=== PATIENT | female | born 1945 | race Caucasian/White ===

== ENCOUNTER 2020-01-18 17:06 | Inpatient (IN) | payer OTHER ==
[~2020-01-18] VITALS: Ht 165.1 cm; Wt 65.4 kg
[2020-01-18 19:00] LABS: BASO # 0.2 (0.0-0.2); BASO % 1.4 % (0.0-2.0); EOS # 4.3 (0.0-0.7); EOS % 28.6 % (0-4.0); GRAN # 6.9 (1.4-6.5); GRAN % 45.6 % (42.2-75.2); HEMATOCRIT 42.4 % (37.0-47.0); HEMOGLOBIN 13.8 g/dl (12.5-16.0); LYMPH # 2.8 (1.2-3.4); LYMPH % 18.3 % (20.0-51.0); MEAN CELL VOLUME 96 fl (80.0-100.0); MEAN CORPUSCULAR HEMOGLOBIN 31 pg (27.0-31.0); MEAN CORPUSCULAR HGB CONC 33 g/dl (33.0-37.0); MEAN PLATELET VOLUME 10.5 fl (7.4-10.4); MONO # 0.9 (0.1-0.6); MONO % 5.8 % (1.7-9.3); PLATELET COUNT 363 K/mm3 (130-400); RED BLOOD COUNT 4.42 M/mm3 (4.10-5.30); REDCELL DISTRIBUTION WIDTH-CV 11.9 % (11.5-14.5)
[2020-01-18 19:06] LABS: ALANINE AMINOTRANSFERASE 20 U/L (4-34); ALBUMIN 4.2 gm/dL (3.5-5.0); ALKALINE PHOSPHATASE 81 U/L (50-136); ANION GAP 7 mmol/L (7-16); AST,SGOT 27 U/L (15-37); BILIRUBIN,TOTAL 0.3 mg/dL (0.0-1.0); BLOOD UREA NITROGEN 13 mg/dL (7-17); CALCIUM 9.6 mg/dL (8.4-10.2); CARBON DIOXIDE 32 mmol/L (22-30); CHLORIDE 99 mmol/L (98-107); CREATININE, serum 0.95 (0.52-1.25); GLUCOSE 111 mg/dL (74-106); POTASSIUM 4.2 mmol/L (3.4-5.0); SODIUM 138 mmol/L (137-145)
[2020-01-18 19:17] LABS: TROPONIN-I < 0.012 ng/mL (0.000-0.035)
[2020-01-18 19:44] LABS: ARTERIAL BLD GAS O2 SATURATION 93.6 % (92-100); ARTERIAL BLD GAS TCO2 CT 29.3; ARTERIAL BLOOD GAS BASE EXCESS 3.6 (-2-2); ARTERIAL BLOOD GAS PCO2 41.5 mmHg (35-45); ARTERIAL BLOOD GAS PO2 68.7 mmHg (80-100); ARTERIAL BLOOD GAS pH 7.45 (7.35-7.45)
--- NOTE | 2020-01-18 22:30 | NUR ---
Received patient from ER. Patient is alert and oriented. She doesn't speak Yi. Threshing Department Supervisor was used during the assesment. Elizabeth was inside the room as well for the history and PE. Patient on O2 at 4lpm via NC. She is tachycardic. HR is at 110bpm. She is afebrile. Noted to have non productive cough. She is independent and was able to urinate already. Instructed patient on how to use the call light and what to press for TV and lights.
[2020-01-18 23:52] VITALS: BP 111/74; PULSE 115; TEMP 98.9
[2020-01-19] MEDS ORDERED: BENADRYL25 M2 PO (00:56)
[2020-01-19] MEDS ORDERED: LIPITOR 10MG10 MG (00:56)
[2020-01-19] MEDS ORDERED: ASPIRIN 81M81 MG/TA2 PO (00:56)
[2020-01-19] MEDS ORDERED: DIABETA1.25 MG PO (00:57)
[2020-01-19] MEDS ORDERED: PREDNISONE 5MG5 MG PO (00:57)
[2020-01-19] MEDS ORDERED: ISORDIL 5MG TABL5 MG (00:57)
[2020-01-19] MEDS ORDERED: CARDIZEM 30MG T30 MG (00:57)
[2020-01-19] MEDS ORDERED: CLARITIN 1010 MG/TAB PO (00:57)
[2020-01-19] MEDS ORDERED: FLONASEALLERGY NS (00:58)
[2020-01-19] MEDS ORDERED: PROAIR HFA0.09 MG/AC IH (00:58)
[2020-01-19] MEDS ORDERED: EXPECTORANT DM120 ML (00:59)
[2020-01-19] MEDS ORDERED: SINGULAIR 110 MG/TAB PO (00:59)
[2020-01-19] MEDS ORDERED: PRIMATENE 12.51 TAB (00:59)
[2020-01-19] MEDS ORDERED: VTAMINC250TA (00:59)
--- NOTE | 2020-01-19 02:00 | NUR ---
About to give Piptaz antibiotic when this nruse used the professor of public administration to asked if the patient has any allergies. She said she is allergic to Penicillin and sudden change of climate. She can't recall the allergic reaction of penicillin. With the help of the professor of public administration, informed patient that we will check her blood glucose ACHS, also she has a fluid restriction of 1500ml/day, instructed her about the urine sample needed. Informed Elizabeth that patient has allergies to Penicillin and says that she will change the order for antibiotic.
[2020-01-19 03:30] VITALS: BP 121/62; PULSE 100; TEMP 98.5
--- NOTE | 2020-01-19 06:40 | NUR ---
Patient had an uneventful night. No shortness of breath noted. Will endorse to day shift nurse
[2020-01-19 07:10] LABS: BASO # 0.1 (0.0-0.2); BASO % 0.9 % (0.0-2.0); EOS # 0.2 (0.0-0.7); EOS % 1.6 % (0-4.0); GRAN % 75.9 % (42.2-75.2); HEMATOCRIT 40.6 % (37.0-47.0); HEMOGLOBIN 13.1 g/dl (12.5-16.0); LYMPH # 1.6 (1.2-3.4); LYMPH % 17.4 % (20.0-51.0); MEAN CELL VOLUME 96 fl (80.0-100.0); MEAN CORPUSCULAR HEMOGLOBIN 31 pg (27.0-31.0); MEAN CORPUSCULAR HGB CONC 32 g/dl (33.0-37.0); MEAN PLATELET VOLUME 10.9 fl (7.4-10.4); MONO # 0.4 (0.1-0.6); MONO % 3.8 % (1.7-9.3); PLATELET COUNT 348 K/mm3 (130-400); RED BLOOD COUNT 4.22 M/mm3 (4.10-5.30)
[2020-01-19 07:33] LABS: CALCIUM 8.7 mg/dL (8.4-10.2); CHOLESTEROL RISK RATIO 5.1; CREATININE, serum 0.47 (0.52-1.25); POTASSIUM 4.2 mmol/L (3.4-5.0)
[2020-01-19 07:50] LABS: INR 1.1 (0.8-3.0); PROTHROMBIN TIME 12.1 SECONDS (9.7-12.8)
[2020-01-19 12:00] VITALS: BP 135/78; PULSE 80; TEMP 98.8
--- NOTE | 2020-01-19 14:20 | NUR ---
Brush Material Preparer contacted patient's daughter, Guillermina (ph#[phone]) as patient is in contact isolation and is burkinan speaking. NANCY completed initial intake with Guillermina. Patient lives in [place] with her daughter and moved here from [place] about three months ago. Patient does not have primary care set up at this time. NANCY spoke with Guillermina about [facility] in [place] as patient does not have current insurance coverage. Guillermina is agreeable to this and states she would be willing to drive patient to appointments. NANCY advised [facility] charges people on a sliding fee scale. Guillermina reports she is an only child and patient's , Darian still lives in [place]. Guillermina does not have a phone number for Darian. Patient does not have Advance Directives. Guillermina reports patient is independent with ADLS and walks with no difficulties normally. Guillermina does advise that lately fanytent has been feeling more week and tired. Plan at this time is for patient to return home. NANCY consulted [employer] Counselor who will complete FAA and SOBRA application with patient. NANCY also contacted Gudelia at [facility] who advised they can see patient as long as she has a photo ID. NANCY contacted Guillermina again who confirmed patient has a photo ID. NANCY to continue to follow.
--- NOTE | 2020-01-19 15:41 | NUR ---
Patient is alert and oriented. denies any pain at this time. Dr Long ordered for TB skin test because of the presence of nodule on lungs as revealed by chest xray. Patient placed of Airborne Isolation for TB pending result.. dry cough still present.wheezing at exertion. independent. IV 0.09%NS discontinued. COVID19 result is still pending.
--- NOTE | 2020-01-19 17:41 | NUR ---
TB skin test given intradermal w/wheal formation right forearm. Lot [id number] Exp 05/22. Through barrel marker patient reports no immediate family history of known TB. Also reports at former workplace +/- 20 years past she was tested for TB with negative results. Aaron RN
[2020-01-19 17:56] VITALS: BP 121/56; PULSE 80; TEMP 98.4
--- NOTE | 2020-01-19 20:30 | NUR ---
Initial shift assessment done- folowing protocol for droplet and contact and airborne precautions-- VSS, alert/oriented, talking on her phone- mainly maltese speaking, did have me talk with her daughter wh states her mom has been nauseated today and vomited once and had some diarrhea-- informed to not flush the next time so i can observe her stool- states understanding- also will call doctor for some meds for nausea- o2 at 2L/nc, no SOB at this time
[2020-01-19 20:43] VITALS: BP 122/60; PULSE 70
[2020-01-19 22:08] VITALS: TEMP 97.8
[2020-01-20 00:25] VITALS: BP 150/80; PULSE 80; TEMP 97.2
[2020-01-20 04:00] VITALS: BP 130/66; PULSE 66; TEMP 97.6
--- NOTE | 2020-01-20 05:25 | NUR ---
Quiet night- covid did come back negative during the night-- remains on airborne. Did not require Nausea meds during the night- slept fair, o2 at 2L/nc, sats 96%
[2020-01-20 13:42] VITALS: BP 132/67; PULSE 72; TEMP 97.7
[2020-01-20 18:13] VITALS: BP 130/72; PULSE 85; TEMP 99.3
--- NOTE | 2020-01-20 19:00 | NUR ---
Report received by [facility].
--- NOTE | 2020-01-20 20:09 | NUR ---
Patient is resting in bed, call light close to patient. report given to night nurse OFELIA Funk
[2020-01-20 22:43] VITALS: BP 118/60; PULSE 100
--- NOTE | 2020-01-20 23:07 | NUR ---
During assessment pt called beronica Chambers for assistance in translation. Pt is pleasant and cooperative during assessment and cares. Denies any current wants and needs other than requesting water with no ice which was provided.
[2020-01-20 23:41] VITALS: BP 122/62; PULSE 90; TEMP 97.5
[2020-01-21 09:22] VITALS: BP 117/60; PULSE 64; TEMP 697.8
--- NOTE | 2020-01-21 10:53 | NUR ---
Pt awake and alert this morning, Daughter on phone to translate, medications were given and Pt had questions about her medications that were answered through phone conversation. Shift assessmnets complete, left Pt sitting on side of bed, call light in reach.
--- NOTE | 2020-01-21 12:08 | NUR ---
Right arm checked for reaction from TB test given. No reddness or induration noted on right arm. TB test (-). Dr. Long made aware
[2020-01-21 12:39] VITALS: BP 130/55; PULSE 78; TEMP 97.6
--- NOTE | 2020-01-21 14:22 | NUR ---
PT ON ROOM AIR AT REST. SPO2 98%. PT WALKED WITH RT ON ROOM AIR APPROX 300 FT WITH SPO2 DROPPING NO LOWER THAN 92% MARTITA EXERCISE VERY WELL. BACK TO ROOM TO SIT ON BED SPO2 97%
[2020-01-21] MEDS ORDERED: LIPITOR 40MG TA40 MG PO (16:15)
[2020-01-21] MEDS ORDERED: LOPRESSOR 225 MG/TAB PO (16:16)
[2020-01-21] MEDS ORDERED: MUCUS RELIEF400 M1 PO (16:17)
[2020-01-21] MEDS ORDERED: PREDNISONE10 MG PO (16:20)
--- NOTE | 2020-01-21 16:22 | NUR ---
The patient is to discharge back home with her daughter today, 01/20. NANCY contacted [facility] in [place] and secured the patient an appointment there on Saturday, 01/26, at 1030. NANCY faxed them the patient's records. NANCY contacted the patient's daughter, Guillermina, and informed her of the appointment and how she would need to bring the patient's photo ID and Guillermina's proof of income. Guillermina verbalized understanding. NANCY provided the community health counselor with [facility]'s registration packet to be placed in the patient's discharge folder. NANCY informed Guillermina of how the registration packet will be in the folder. No additional needs at this time.
[2020-01-21] MEDS ORDERED: ZESTRIL2.5 MG PO (16:25)
--- NOTE | 2020-01-21 18:20 | NUR ---
Pt discharged to home, escorted Pt to enterance, discussed packet with Pt and daughter at entrance, daughter translated, all questions answered, assisted Pt into vehicle, Pt left with daughter via private auto.
[2020-01-22 05:26] LABS: TB GOLD INTERPRETATION Negative (Negative)
== END 2020-01-21 18:20 | disposition home or self-care (01) | DRG 189 ==
LOC: COL.ER 17:06 → PEDS 20:45 → MEDICAL 01-20 09:59
PROVIDERS: Emergency Medicine; Nurse Practitioner Family; ADMIT Internal Medicine
DX: J96.01 Acute respiratory failure with hypoxia (principal); J45.901 Unspecified asthma with (acute) exacerbation; J98.11 Atelectasis; I50.20 Unspecified systolic (congestive) heart failure; I25.5 Ischemic cardiomyopathy; Z20.828 Contact with and (suspected) exposure to other viral communicable diseases; E11.9 Type 2 diabetes mellitus without complications; F17.210 Nicotine dependence, cigarettes, uncomplicated; Z79.82 Long term (current) use of aspirin
CPT/HCPCS: 99223-AI; 99232-AI; 99238; J0456; J0696; J1650; J1956; J7030; J7050; J7512

== ENCOUNTER → 2020-02-24 | Outpatient (CLI) | payer SELFPAY ==
[~2020-02-24] MED LIST: ASPIRIN 81M81 MG/TA2 PO; BENADRYL25 M2 PO; CARDIZEM 30MG T30 MG; CLARITIN 1010 MG/TAB PO; DIABETA1.25 MG PO; EXPECTORANT DM120 ML; FLONASEALLERGY NS; ISORDIL 5MG TABL5 MG; LIPITOR 10MG10 MG; LIPITOR 40MG TA40 MG PO; LOPRESSOR 225 MG/TAB PO; MUCINEX 60600 MG/TA1 PO; MUCUS RELIEF400 M1 PO; PREDNISONE 5MG5 MG PO; PREDNISONE10 MG PO; PRIMATENE 12.51 TAB; PROAIR HFA0.09 MG/AC IH; SINGULAIR 110 MG/TAB PO; TUSSIN DM CLEA120 ML PO; VTAMINC250TA; ZESTRIL2.5 MG PO
[2020-02-24 10:11] VITALS: BP 140/76; PULSE 74
== END ==
LOC: COL.CARD 09:15
DX: I11.0 Hypertensive heart disease with heart failure (principal); I50.20 Unspecified systolic (congestive) heart failure
CPT/HCPCS: A9500

== ENCOUNTER → 2020-04-12 | Outpatient (CLI) | payer SELFPAY | LOC: COL.RAD 11:53 | DX: R91.8 Other nonspecific abnormal finding of lung field (principal); I25.10 Atherosclerotic heart disease of native coronary artery without angina pectoris; Z87.891 Personal history of nicotine dependence ==

== ENCOUNTER → 2020-08-10 | Outpatient (CLI) | payer SELFPAY ==
[2020-08-10 11:10] LABS: BASO # 0.1 (0.0-0.2); BASO % 1.5 % (0.0-2.0); EOS % 11.4 % (0-4.0); GRAN # 3.8 (1.4-6.5); GRAN % 42.7 % (42.2-75.2); HEMATOCRIT 39.9 % (37.0-47.0); HEMOGLOBIN 13.4 g/dl (12.5-16.0); LYMPH # 3.2 (1.2-3.4); LYMPH % 36.2 % (20.0-51.0); MEAN CELL VOLUME 96 fl (80.0-100.0); MEAN CORPUSCULAR HEMOGLOBIN 32 pg (27.0-31.0); MEAN CORPUSCULAR HGB CONC 34 g/dl (33.0-37.0); MEAN PLATELET VOLUME 10.2 fl (7.4-10.4); MONO # 0.7 (0.1-0.6); PLATELET COUNT 301 K/mm3 (130-400); RED BLOOD COUNT 4.18 M/mm3 (4.10-5.30); REDCELL DISTRIBUTION WIDTH-CV 12.3 % (11.5-14.5)
[2020-08-10 11:18] LABS: BILIRUBIN,TOTAL 0.8 mg/dL (0.0-1.0); CALCIUM 9.2 mg/dL (8.4-10.2); CREATININE, serum 0.76 (0.52-1.25); TOTAL PROTEIN 6.9 gm/dL (6.4-8.2)
[2020-08-10 12:38] LABS: ERYTHROCYTE SEDIMENTATION RATE 7 mm/hr (0-30)
[2020-08-11 12:24] LABS: ANA SCREEN with REFLEX Negative (Negative)
== END ==
LOC: COL.LAB 09:59 → COL.RAD 10:04
PROVIDERS: Registered Nurse
DX: M19.041 Primary osteoarthritis, right hand (principal); M19.042 Primary osteoarthritis, left hand

== ENCOUNTER → 2021-01-10 | Outpatient (CLI) | payer SELFPAY | LOC: COL.VAS 01-03 14:45 | DX: I50.20 Unspecified systolic (congestive) heart failure (principal); I20.9 Angina pectoris, unspecified; I34.0 Nonrheumatic mitral (valve) insufficiency; I51.7 Cardiomegaly ==